=== PATIENT | female | born 1975 | race Caucasian/White ===

== ENCOUNTER 2016-09-01 16:10 | Emergency (ER) | payer OTHER ==
--- NOTE | 2016-09-01 17:23 | ED ---
Head Injury HPI - General Chief complaint: Head Injury Stated complaint: Fall, Head Injury Time Seen by Provider: 09/01/16 17:10 Source: patient, RN notes reviewed Mode of arrival: wheelchair Limitations: no limitations - History of Present Illness Initial comments: 41-year-old female presents emergency Department chief complaint of fall, head injury. Patient states that she tripped down 2 steps into a couch. Patient states she struck the left side of her head. Patient complains of left-sided head, upper neck pain. Patient denies any extremity injuries no LOC. Patient states she did feel slightly dizzy after has been complaining of severe pain. Patient has had no abnormal behavior. Denies any paresthesias of her upper or lower extremity. Denies any chest pain, shortness breath. Patient offers no other complaints other than the headache. - Related Data Home Medications Medication Instructions Recorded Confirmed [id number] 1 tab PO Q6H PRN 09/01/16 09/01/16 [Excedrin] Previous Rx's Medication Instructions Recorded Hydrocodone/Acetaminophen [[place] 1 tab PO Q6HR PRN #15 tab 09/01/16 5-325] Ondansetron Odt [Zofran Odt] 4 mg PO Q8HR PRN #10 tab 09/01/16 Allergies/Adverse reactions: Allergies Allergy/AdvReac Type Severity Reaction Status Date / Time ciprofloxacin [From Cipro] AdvReac Nausea & Verified 09/01/16 17:13 Vomiting Review of Systems ROS Statement: Those systems with pertinent positive or pertinent negative responses have been documented in the HPI. ROS Other: All systems not noted in ROS Statement are negative. Past Medical History Past Medical History: No Reported History Additional Past Medical History / Comment(s): kidney stones History of Any Multi-Drug Resistant Organisms: None Reported Past Surgical History: Tonsillectomy, Tubal Ligation Past Psychological History: No Psychological Hx Reported Smoking Status: Never smoker Past Alcohol Use History: None Reported Past Drug Use History: None Reported General Exam Limitations: no limitations General appearance: alert, in no apparent distress Head exam: Present: atraumatic, normocephalic, normal inspection, other (Mild tenderness to the left parietal, occipital region) Eye exam: Present: normal appearance, PERRL, EOMI. Absent: scleral icterus, conjunctival injection, periorbital swelling ENT exam: Present: normal exam, normal oropharynx, mucous membranes moist, TM's normal bilaterally, normal external ear exam Neck exam: Present: normal inspection, full ROM. Absent: tenderness, meningismus, lymphadenopathy Respiratory exam: Present: normal lung sounds bilaterally. Absent: respiratory distress, wheezes, rales, rhonchi, stridor Cardiovascular Exam: Present: regular rate, normal rhythm, normal heart sounds. Absent: systolic murmur, diastolic murmur, rubs, gallop, clicks GI/Abdominal exam: Present: soft, normal bowel sounds. Absent: distended, tenderness, guarding, rebound, rigid Extremities exam: Present: normal inspection, full ROM, normal capillary refill. Absent: tenderness, pedal edema, joint swelling, calf tenderness Neurological exam: Present: alert, oriented X3, CN II-XII intact, reflexes normal. Absent: motor sensory deficit Skin exam: Present: warm, dry, intact, normal color. Absent: rash Course Vital Signs 09/01/16 09/01/16 16:21 17:55 Temperature 97.6 F Pulse Rate 105 H 94 Respiratory 20 18 Rate Blood Pressure 147/99 144/70 O2 Sat by Pulse 99 98 Oximetry Medical Decision Making - Medical Decision Making 41-year-old female presented emergency from for head injury. There is no acute intracranial bleed no fractures. Patient has concussion, facial contusion. Patient will be discharged. Return parameters were discussed. Disposition Clinical Impression: Concussion, Facial contusion Disposition: HOME SELF-CARE Condition: Stable Instructions: Concussion (ED) Additional Instructions: Please return to the Emergency Department if symptoms worsen or any other concerns. Prescriptions: Hydrocodone/Acetaminophen [[place] 5-325] 1 tab PO Q6HR PRN #15 tab PRN Reason: Pain Ondansetron Odt [Zofran Odt] 4 mg PO Q8HR PRN #10 tab PRN Reason: Nausea Time of Disposition: 18:22
--- NOTE | 2016-09-01 17:56 | CT ---
EXAMINATION TYPE: CT brain marleneine wo con DATE OF EXAM: 09/01/2016 5:49 PM COMPARISON: NONE HISTORY: Fall today. Head and neck pain CT DLP: 1590.9 mGycm Automated exposure control for dose reduction was used. TECHNIQUE: CT scan of the head and cervical spine are performed without contrast. FINDINGS: The ventricles and sulci appear normal. There is no mass effect nor midline shift. There is no sign of intracranial hemorrhage. The calvarium is intact. The cervical vertebra are fairly normal spacing and alignment. Posterior elements are intact. Facet j oints appear intact. Skull base is intact. Prevertebral soft tissues appear normal. IMPRESSION: Negative CT scan of the brain. Negative CT scan of the cervical spine.
[2016-09-01] MEDS ORDERED: ONDANSETRON ODT 4 MG TAB PO STA (18:21)
[2016-09-01] MEDS ORDERED: HYDROcodone/APAP 5-325MG 1 EACH TAB PO STA (18:21)
[2016-09-01 18:42] VITALS: BP 141/56; PULSE 88; RESP 20; TEMP 97.3
== END 2016-09-01 18:40 | disposition home or self-care (01) ==
LOC: EC 16:10
DX: S06.0X0A Concussion without loss of consciousness, initial encounter (principal); S00.83XA Contusion of other part of head, initial encounter; Z88.1 Allergy status to other antibiotic agents; W10.9XXA Fall (on) (from) unspecified stairs and steps, initial encounter
CPT/HCPCS: 70450; 72125; 99284

== ENCOUNTER 2016-09-03 09:33 | Emergency (ER) | payer OTHER ==
[2016-09-03 09:38] VITALS: TEMP 97.8
[2016-09-03] MEDS ORDERED: ONDANSETRON ODT 4 MG TAB PO STA (10:00)
--- NOTE | 2016-09-03 10:21 | CT ---
EXAMINATION TYPE: CT brain wo con DATE OF EXAM: 09/03/2016 10:12 AM COMPARISON: 09/01/2016 HISTORY: 41-year-old female worsened headache from fall on 09/01/16 TECHNIQUE: Examination was done in axial plane without intravenous contrast. Coronal and sagittal reconstructio ns performed. CT DLP: 1108.4 mGycm Automated exposure control for dose reduction was used. FINDINGS: There is no evidence of acute intracranial hemorrhage, acute ischemic changes, mass, mass-effect, or extra-axial fluid collection. There is no effacement of cerebral sulci or basal subarachnoid cister ns. There is no hydrocephalus. There is no midline shift. Josue-white matter distinction is preserv ed. 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 Empty sella also redemonstrated. Paranasal sinuses and mastoid air cells are well pneumatized. Orbits and globes are intact. IMPRESSION: No acute intracranial abnormality seen. A couple incidental findings including benign cerebellar tons illar ectopia and an empty sella are unchanged.
--- NOTE | 2016-09-03 10:36 | ED ---
Head Injury HPI - General Chief complaint: Head Injury Stated complaint: Fall Time Seen by Provider: 09/03/16 09:39 Source: patient, RN notes reviewed Mode of arrival: ambulatory Limitations: no limitations - History of Present Illness Initial comments: 41-year-old female presents emergency Department with chief complaint headache. Patient was seen here in emergency department 2 days ago for fall head injury. Patient's CT showed no acute abnormality. Patient states that she has continuation of her headache, nausea and vomiting. Patient states that she did fill pain medication though she cannot afford the into the medics. Patient states that she did scheduled appointment with Dr. Manzano a new primary care physician for Tuesday follow-up. Patient states she does have some dizziness. Patient has had no blurred vision no focal weakness. Patient is able to ambulate without difficulty. Patient states that she thought she has some fluid come out of her left ear which she states she put her finger there and there was nothing much. Patient denies any drainage at this time. She states this happened yesterday. She did admit to taking a shower earlier that day. Patient denies any chest pain or shortness breath. Patient states that she has pain on the left side of her head around her left ear Place: home - Related Data Home Medications Medication Instructions Recorded Confirmed [id number] 1 tab PO Q6H PRN 09/01/16 09/01/16 [Excedrin] Previous Rx's Medication Instructions Recorded Hydrocodone/Acetaminophen [[place] 1 tab PO Q6HR PRN #15 tab 09/01/16 5-325] Ondansetron Odt [Zofran Odt] 4 mg PO Q8HR PRN #10 tab 09/01/16 Metoclopramide [Reglan] 10 mg PO TID PRN #15 tab 09/03/16 Allergies/Adverse reactions: Allergies Allergy/AdvReac Type Severity Reaction Status Date / Time ciprofloxacin [From Cipro] AdvReac Nausea & Verified 09/03/16 09:38 Vomiting Review of Systems ROS Statement: Those systems with pertinent positive or pertinent negative responses have been documented in the HPI. ROS Other: All systems not noted in ROS Statement are negative. Past Medical History Past Medical History: No Reported History Additional Past Medical History / Comment(s): kidney stones History of Any Multi-Drug Resistant Organisms: None Reported Past Surgical History: Tonsillectomy, Tubal Ligation Past Psychological History: No Psychological Hx Reported Smoking Status: Never smoker Past Alcohol Use History: None Reported Past Drug Use History: None Reported General Exam Limitations: no limitations General appearance: alert, in no apparent distress Head exam: Present: atraumatic, normocephalic, normal inspection Eye exam: Present: normal appearance, PERRL, EOMI. Absent: scleral icterus, conjunctival injection, periorbital swelling ENT exam: Present: normal exam, normal oropharynx, mucous membranes moist, TM's normal bilaterally (There is no rupture of the TM there is no fluid noted in the canal), normal external ear exam, other ( no mastoid tenderness, no lee sign ) Neck exam: Present: normal inspection, full ROM. Absent: tenderness, meningismus, lymphadenopathy Respiratory exam: Present: normal lung sounds bilaterally. Absent: respiratory distress, wheezes, rales, rhonchi, stridor Cardiovascular Exam: Present: regular rate, normal rhythm, normal heart sounds. Absent: systolic murmur, diastolic murmur, rubs, gallop, clicks Back exam: Present: full ROM. Absent: tenderness Neurological exam: Present: alert, oriented X3, CN II-XII intact, reflexes normal. Absent: motor sensory deficit Skin exam: Present: warm, dry, intact, normal color. Absent: rash Course Vital Signs 09/03/16 09:35 Temperature 97.8 F Pulse Rate 86 Respiratory 20 Rate Blood Pressure 143/74 O2 Sat by Pulse 100 Oximetry Medical Decision Making - Medical Decision Making 41-year-old female presented emergency department for worsening headache. Patient CT was repeated which showed no acute intracranial bleed or any acute abnormality. There was some incidental findings. Patient has postconcussion symptoms. Patient will be given a different antiemetic at this time. Patient will be given number to Dr. Rojo neurology. Return parameters discussed. Patient does have a follow-up appointment currently with primary care physician on Tuesday. Disposition Clinical Impression: Postconcussional syndrome Disposition: TRANSFER TO PSYCH HOSP/UNIT Condition: Stable Instructions: Post Concussion Syndrome (ED) Additional Instructions: Please follow-up with your primary care physician and neurology as discussed.Please return to the Emergency Department if symptoms worsen or any other concerns. Prescriptions: Metoclopramide [Reglan] 10 mg PO TID PRN #15 tab PRN Reason: GERD Referrals: Srikanth Rob MD [REFERRING] - 1-2 days Tracey Rojo MD [STAFF PHYSICIAN] - 1-2 days Time of Disposition: 10:36
[2016-09-03 10:52] VITALS: BP 135/75; PULSE 78; RESP 16
== END 2016-09-03 10:52 ==
LOC: EC 09:33
DX: F07.81 Postconcussional syndrome (principal); W19.XXXA Unspecified fall, initial encounter; Z88.1 Allergy status to other antibiotic agents
CPT/HCPCS: 70450; 99283

== ENCOUNTER 2019-11-27 22:15 | Emergency (ER) | payer OTHER ==
[2019-11-27 22:24] VITALS: RESP 18; TEMP 97.8
[2019-11-27 23:12] LABS: Appearance,Urine Clear (Clear); Bilirubin,Urine Negative (Negative); Blood,Urine Trace (Negative); Color,Urine Yellow; Glucose,Urine (UA) Negative (Negative); Ketones,Urine Negative (Negative); Leukocyte Esterase,Urine Negative (Negative); Mucus,Urine Rare /hpf; Nitrite,Urine Negative (Negative); PH, Urine 5.5 (5.0-8.0); Protein,Urine Negative (Negative); RBC,Urine <1 /hpf (0-5); Specific Gravity,Urine 1.018 (1.001-1.035); Squamous Epithelial Cell,Urine 1 /hpf (0-4); Urobilinogen,Urine <2.0 mg/dL (<2.0); WBC,Urine <1 /hpf (0-5)
[2019-11-27 23:14] LABS: Basophils % (A) 0 %; Eosinophils # (A) 0.2 k/uL (0-0.7); Eosinophils % (A) 1 %; HCT 35.6 % (34.0-46.0); HGB 11.4 gm/dL (11.4-16.0); Hypochromasia Slight; Lymphocytes # (A) 1.9 k/uL (1.0-4.8); Lymphocytes % (A) 16 %; MCH 27.1 pg (25.0-35.0); MCHC 32.2 g/dL (31.0-37.0); MCV 84.4 fL (80.0-100.0); Monocytes # (A) 0.5 k/uL (0-1.0); Monocytes % (A) 5 %; Neutrophils % (A) 77 %; Platelet Count 227 k/uL (150-450); RBC 4.22 m/uL (3.80-5.40); RDW 13.7 % (11.5-15.5); WBC 11.8 k/uL (3.8-10.6)
[2019-11-27 23:22] LABS: ALT 17 U/L (4-34); AST 25 U/L (14-36); African American GFR (CKD) >90 (>60 ml/min/1.73 sqM); Albumin 4.5 g/dL (3.5-5.0); Alkaline Phosphatase 70 U/L (38-126); Anion Gap 6 mmol/L; Blood Urea Nitrogen 12 mg/dL (7-17); Calcium 9.8 mg/dL (8.4-10.2); Carbon Dioxide 28 mmol/L (22-30); Chloride 102 mmol/L (98-107); Glucose 113 mg/dL (74-99); Non-African American GFR(CKD) >90 (>60 ml/min/1.73 sqM); Potassium 4.5 mmol/L (3.5-5.1); Sodium 136 mmol/L (137-145); Total Bilirubin 0.4 mg/dL (0.2-1.3); Total Protein 7.1 g/dL (6.3-8.2)
--- NOTE | 2019-11-27 23:52 | ED ---
Female Urogenital HPI - General Source: patient Mode of arrival: ambulatory Limitations: no limitations <Edita Eden - Last Filed: 11/28/19 00:05> <Srikanth Ray - Last Filed: 11/28/19 01:07> - General Chief complaint: Urogenital Stated complaint: Pelvic Pain Time Seen by Provider: 11/27/19 22:31 - History of Present Illness Initial comments: 44-year-old presenting today for chief complaint of lower pelvic pain 2 days. Patient states she has diffuse lower pelvic pain for the past 3 days. Patient s tates that it came on gradually and was tolerable at first she states at times as burning other times sharp. Patient denies dysuria urgency frequency denies any flank pain fevers diarrhea or vomiting. Patient denies any upper abdominal pain chest pain or shortness of breath. Patient denies any melena hematochezia or vaginal bleeding she denies any vaginal discharge or odors. Patient states that she has had a previous right salpingectomy secondary to PID 8 years ago. Patient states that she has also had a previous appendectomy. Patient denies additional complaints, upon arrival patient appear uncomfortable, but no distress. VS within acceptable limits. (Edita Eden) - Related Data Home Medications Medication Instructions Recorded Confirmed [id number] 1 tab PO Q6H PRN 09/01/16 09/01/16 [Excedrin] Previous Rx's Medication Instructions Recorded Hydrocodone/Acetaminophen [[place] 1 tab PO Q6HR PRN #15 tab 09/01/16 5-325] Ondansetron Odt [Zofran Odt] 4 mg PO Q8HR PRN #10 tab 09/01/16 Metoclopramide [Reglan] 10 mg PO TID PRN #15 tab 09/03/16 Allergies Allergy/AdvReac Type Severity Reaction Status Date / Time ciprofloxacin [From Cipro] AdvReac Nausea & Verified 11/27/19 22:24 Vomiting Review of Systems ROS Other: All systems not noted in ROS Statement are negative. <Edita Eden - Last Filed: 11/28/19 00:05> ROS Other: All systems not noted in ROS Statement are negative. <Srikanth aRy - Last Filed: 11/28/19 01:07> ROS Statement: Those systems with pertinent positive or pertinent negative responses have been documented in the HPI. Past Medical History Past Medical History: No Reported History Additional Past Medical History / Comment(s): kidney stones History of Any Multi-Drug Resistant Organisms: None Reported Past Surgical History: Appendectomy, Tonsillectomy, Tubal Ligation Past Psychological History: No Psychological Hx Reported Smoking Status: Never smoker Past Alcohol Use History: None Reported Past Drug Use History: None Reported <Edita Eden - Last Filed: 11/28/19 00:05> General Exam Limitations: no limitations <Edita Eden - Last Filed: 11/28/19 00:05> - General Exam Comments Initial Comments: General: The patient is awake and alert, appears uncomfortable. Eye: +3 mm pupils are equal, round and reactive to light, extra-ocular movements are intact. No nystagmus. There is normal conjunctiva bilaterally. No signs of icterus. Ears, nose, mouth and throat: There are moist mucous membranes and no oral lesions. Neck: The neck is supple, there is no tenderness or JVD. Cardiovascular: There is a regular rate and rhythm. No murmur, rub or gallop is appreciated. Respiratory: Lungs are clear to auscultation, respirations are non-labored, breath sounds are equal. No wheezes, stridor, rales, or rhonchi. Gastrointestinal: Soft, non-distended, diffuse tenderness to the lower abdomen, appears pelvic but difficult to distinguish secondary to panus. Remaining upper abdomen without tenderness, without masses or organomegaly noted. There is no rebound or guarding present. Musculoskeletal: Normal ROM, no tenderness. Strength 5/5. Sensation intact. Radial pulses equal bilaterally 2+. Neurological: A&O x 3. CN II-XII intact grossly, There are no obvious motor or sensory deficits. Coordination appears grossly intact. Speech is normal. Skin: Skin is warm and dry and no rashes or lesions are noted. Psychiatric: Cooperative, appropriate mood & affect, normal judgment. (Edita Eden) Course Vital Signs 11/27/19 22:22 Temperature 97.8 F Pulse Rate 76 Respiratory 18 Rate Blood Pressure 147/87 O2 Sat by Pulse 100 Oximetry Medical Decision Making - Lab Data Result diagrams: 11/27/19 22:49 11/27/19 22:49 <Edita Eden - Last Filed: 11/28/19 00:05> - Lab Data Result diagrams: 11/27/19 22:49 11/27/19 22:49 <Srikanth Ray - Last Filed: 11/28/19 01:07> - Medical Decision Making 44-year-old female with lower abdominal pain. Patient workup reveals mild leukocytosis, no other significant abnormality. Ultrasound was performed which shows multiple cervical cysts, right ovary is not well visualized on of the patient's pain is predominantly on the left side. I did discuss computed tomography scan with the patient, she prefers to wait on this study and wants to go home and rest. She states she will return with any worsening or changing symptoms. I did reexamine her abdomen, there is minimal left-sided tenderness, no rebound or guarding. Again patient prefers discharge at this time with no further evaluation or treatment. (Srikanth Ray) - Lab Data Lab Results 11/27/19 11/27/19 11/27/19 Range/Units 22:49 22:49 22:53 WBC 11.8 H (3.8-10.6) k/uL RBC 4.22 (3.80-5.40) m/uL Hgb 11.4 (11.4-16.0) gm/dL Hct 35.6 (34.0-46.0) % MCV 84.4 (80.0-100.0) fL MCH 27.1 (25.0-35.0) pg MCHC 32.2 (31.0-37.0) g/dL RDW 13.7 (11.5-15.5) % Plt Count 227 (150-450) k/uL Neutrophils % 77 % Lymphocytes % 16 % Monocytes % 5 % Eosinophils % 1 % Basophils % 0 % Neutrophils # 9.0 H (1.3-7.7) k/uL Lymphocytes # 1.9 (1.0-4.8) k/uL Monocytes # 0.5 (0-1.0) k/uL Eosinophils # 0.2 (0-0.7) k/uL Basophils # 0.0 (0-0.2) k/uL Hypochromasia Slight Sodium 136 L (137-145) mmol/L Potassium 4.5 (3.5-5.1) mmol/L Chloride 102 (98-107) mmol/L Carbon Dioxide 28 (22-30) mmol/L Anion Gap 6 mmol/L BUN 12 (7-17) mg/dL Creatinine 0.73 (0.52-1.04) mg/dL Est GFR (CKD-EPI)AfAm >90 (>60 ml/min/1.73 sqM) Est GFR (CKD-EPI)NonAf >90 (>60 ml/min/1.73 sqM) Glucose 113 H (74-99) mg/dL Calcium 9.8 (8.4-10.2) mg/dL Total Bilirubin 0.4 (0.2-1.3) mg/dL AST 25 (14-36) U/L ALT 17 (4-34) U/L Alkaline Phosphatase 70 (38-126) U/L Total Protein 7.1 (6.3-8.2) g/dL Albumin 4.5 (3.5-5.0) g/dL Urine Color Yellow Urine Appearance Clear (Clear) Urine pH 5.5 (5.0-8.0) Ur Specific [place] 1.018 (1.001-1.035) Urine Protein Negative (Negative) Urine Glucose (UA) Negative (Negative) Urine Ketones Negative (Negative) Urine Blood Trace H (Negative) Urine Nitrite Negative (Negative) Urine Bilirubin Negative (Negative) Urine Urobilinogen <2.0 (<2.0) mg/dL Ur Leukocyte Esterase Negative (Negative) Urine RBC <1 (0-5) /hpf Urine WBC <1 (0-5) /hpf Ur Squamous Epith Cells 1 (0-4) /hpf Urine Mucus Rare H (None) /hpf Disposition <Edita Eden - Last Filed: 11/28/19 00:05> Is patient prescribed a controlled substance at d/c from ED?: No Time of Disposition: 01:06 <Srikanth Ray - Last Filed: 11/28/19 01:07> Clinical Impression: Abdominal pain Disposition: HOME SELF-CARE Instructions (If sedation given, give patient instructions): Abdominal Pain (ED) Referrals: None,Stated [Primary Care Provider] - 1-2 days Suman Maldonado MD [STAFF PHYSICIAN] - 1-2 days
--- NOTE | 2019-11-28 00:24 | US ---
EXAMINATION TYPE: US transvaginal DATE OF EXAM: 11/27/2019 COMPARISON: NONE CLINICAL HISTORY: pelvic pain. Pelvic pain x 3 days. Hx right fallopian tube removed. Hx tubal ligati on, Appendectomy. TECHNIQUE: Transvaginal (TV). Date of LMP: 11/07/2019. EXAM MEASUREMENTS: Uterus: 11.4 x 8.0 x 7.0 cm Endometrial Stripe: 0.7 cm Right Ovary: Not seen Left Ovary: 4.0 x 2.8 x 3.3 cm 1. Uterus: Anteverted. Measures enlarged. Appears heterogeneous. Limited due to shadowing. There rony ears to be a hypoechoic area posteriorly measurin.7 x 2.5 x 2.2 cm. Multiple anechoic areas seen in cervix. 2. Endometrium: Not well seen. Measured at: 0.7 cm. 3. Right Ovary: Not seen. 4. Left Ovary: Limited visibility due to depth and shadowing. Venous waveform seen. Possible arteria l waveform seen. Limited. Appears to be slightly enlarged. 5. Bilateral Adnexa: Appear to be wnl 6. Posterior cul-de-sac: Appears to be wnl IMPRESSION: There are cervical cysts. No adnexal mass or free fluid. Normal endometrium.
[2019-11-28 01:24] VITALS: BP 127/78; PULSE 63
== END 2019-11-28 01:21 | disposition home or self-care (01) ==
LOC: EC 22:15
DX: R10.30 Lower abdominal pain, unspecified (principal); N88.8 Other specified noninflammatory disorders of cervix uteri; D72.829 Elevated white blood cell count, unspecified; Z88.1 Allergy status to other antibiotic agents; Z90.89 Acquired absence of other organs; Z98.51 Tubal ligation status; Z90.721 Acquired absence of ovaries, unilateral; Z87.442 Personal history of urinary calculi
CPT/HCPCS: 36415; 76830; 80053; 81001; 85025; 93976; 99284

== ENCOUNTER 2020-04-15 00:09 | Observation (INO) | payer OTHER, BC ==
[2020-04-15] MEDS ORDERED: SODIUM CHLORIDE 0.9% 1,000 ML IV STA (00:29)
--- NOTE | 2020-04-15 00:55 | ED ---
General Adult HPI - General Chief complaint: Syncope Stated complaint: CHEST PAIN Time Seen by Provider: 04/15/20 00:16 Source: patient, family Mode of arrival: ambulatory Limitations: no limitations - History of Present Illness Initial comments: 44-year-old female patient presents to the emergency department today for evaluation after experiencing a syncopal episode. Patient states that the proximal he 2 hours ago she was standing in the bathroom when she suddenly felt her heart start to pound and then she passed out. Patient states she was able t o call her who then came home and brought her to this emergency department. States she did have a similar episode yesterday when standing in the kitchen she became very nauseated, leaned forward to vomit and then passed out for about 15 seconds. was present the first episode and denies any body shaking or convulsions. Patient states that she has been having palpitations for the last several months. She has not had evaluated by her physician as they generally go away after a few seconds. Patient is also experiencing heavy and prolonged menstrual bleeding. States her last period lasted for about 4 weeks and ended approximately one week ago. She states this has been going on for the last several months. She has been anemic related to this. She denies any chest pain. Denies any current nausea. States that she does become winded with activity. Denies any extremity swelling. She is also reporting some chest discomfort beneath the left breast. She does have history of high blood pressure and does take atenolol 50 mg, she has been at this dose for quite some time. Patient denies any recent rash, fever, chills, cough, abdominal pain, diarrhea, constipation, back pain, numbness, tingling, hematuria, dysuria, urinary urgency, urinary frequency, headache, visual changes, or any other complaints. - Related Data Home Medications Medication Instructions Recorded Confirmed [id number] 1 tab PO Q6H PRN 09/01/16 09/01/16 [Excedrin] Previous Rx's Medication Instructions Recorded Hydrocodone/Acetaminophen [[place] 1 tab PO Q6HR PRN #15 tab 09/01/16 5-325] Ondansetron Odt [Zofran Odt] 4 mg PO Q8HR PRN #10 tab 09/01/16 Metoclopramide [Reglan] 10 mg PO TID PRN #15 tab 09/03/16 Allergies Allergy/AdvReac Type Severity Reaction Status Date / Time cefuroxime [From Ceftin] AdvReac Nausea & Verified 04/15/20 00:15 Vomiting ciprofloxacin [From Cipro] AdvReac Nausea & Verified 04/15/20 00:16 Vomiting morphine AdvReac Rash/Hives Verified 04/15/20 00:15 Review of Systems ROS Statement: Those systems with pertinent positive or pertinent negative responses have been documented in the HPI. ROS Other: All systems not noted in ROS Statement are negative. Past Medical History Past Medical History: Hypertension Additional Past Medical History / Comment(s): kidney stones History of Any Multi-Drug Resistant Organisms: None Reported Past Surgical History: Appendectomy, Tonsillectomy, Tubal Ligation Past Psychological History: No Psychological Hx Reported Smoking Status: Never smoker Past Alcohol Use History: None Reported Past Drug Use History: None Reported General Exam Limitations: no limitations General appearance: alert, in no apparent distress, other (This is a well- developed, well-nourished adult female patient in no acute distress. Vital signs upon presentation are temperature 99.1F, pulse 73, respirations 20, blood pressure 155/83, pulse ox 98% on room air.) Eye exam: Present: normal appearance, PERRL, EOMI. Absent: scleral icterus, conjunctival injection, periorbital swelling ENT exam: Present: normal exam, normal oropharynx, mucous membranes moist Respiratory exam: Present: normal lung sounds bilaterally. Absent: respiratory distress, wheezes, rales, rhonchi, stridor Cardiovascular Exam: Present: regular rate, normal rhythm, normal heart sounds. Absent: systolic murmur, diastolic murmur, rubs, gallop, clicks GI/Abdominal exam: Present: soft, normal bowel sounds. Absent: distended, tenderness, guarding, rebound, rigid Neurological exam: Present: alert, oriented X3, CN II-XII intact Psychiatric exam: Present: normal affect, normal mood Skin exam: Present: warm, dry, intact, normal color. Absent: rash Course Vital Signs 04/15/20 00:11 Temperature 99.1 F Pulse Rate 73 Respiratory 20 Rate Blood Pressure 155/83 O2 Sat by Pulse 98 Oximetry EKG Findings - EKG Comments: EKG Findings:: EKG obtained at 0021 shows normal sinus rhythm with a ventricular rate of 73, TX interval 148, QRS duration 78, QT 370, QTC 407. No evidence of ST elevation or depression. Medical Decision Making - Medical Decision Making 44-year-old female patient presents to the emergency department today for evaluation of palpitations and syncope. She is also reporting shortness of breath with activity and left-sided chest discomfort. Physical examination is unremarkable. Patient is normal sinus rhythm on heart monitor. EKG showed normal sinus rhythm area did labs reviewed and are unremarkable. Given that the syncopal events happened ice over the last couple of days I believe it would be beneficial for her to remain in the hospital for observation with cardiac monitoring and evaluation by cardiology tomorrow. We will repeat troponins and get echo in the morning. I did discuss findings, results, plan with the patient, she is agreeable. Dr. Cueva is accepting. - Lab Data Result diagrams: 04/15/20 01:08 04/15/20 01:08 Lab Results 04/15/20 04/15/20 04/15/20 Range/Units 01:08 01:08 01:08 WBC 8.2 (3.8-10.6) k/uL RBC 3.83 (3.80-5.40) m/uL Hgb 10.3 L (11.4-16.0) gm/dL Hct 31.8 L (34.0-46.0) % MCV 82.8 (80.0-100.0) fL MCH 26.9 (25.0-35.0) pg MCHC 32.5 (31.0-37.0) g/dL RDW 15.6 H (11.5-15.5) % Plt Count 229 (150-450) k/uL Neutrophils % 70 % Lymphocytes % 19 % Monocytes % 7 % Eosinophils % 2 % Basophils % 0 % Neutrophils # 5.8 (1.3-7.7) k/uL Lymphocytes # 1.6 (1.0-4.8) k/uL Monocytes # 0.6 (0-1.0) k/uL Eosinophils # 0.2 (0-0.7) k/uL Basophils # 0.0 (0-0.2) k/uL Hypochromasia Slight PT 9.8 (9.0-12.0) sec INR 0.9 (<1.2) APTT 22.7 (22.0-30.0) sec Sodium (137-145) mmol/L Potassium (3.5-5.1) mmol/L Chloride (98-107) mmol/L Carbon Dioxide (22-30) mmol/L Anion Gap mmol/L BUN (7-17) mg/dL Creatinine (0.52-1.04) mg/dL Est GFR (CKD-EPI)AfAm (>60 ml/min/1.73 sqM) Est GFR (CKD-EPI)NonAf (>60 ml/min/1.73 sqM) Glucose (74-99) mg/dL Calcium (8.4-10.2) mg/dL Magnesium (1.6-2.3) mg/dL Total Bilirubin (0.2-1.3) mg/dL AST (14-36) U/L ALT (4-34) U/L Alkaline Phosphatase (38-126) U/L Troponin I (0.000-0.034) ng/mL Total Protein (6.3-8.2) g/dL Albumin (3.5-5.0) g/dL TSH (0.465-4.680) mIU/L Urine Color Yellow Urine Appearance Cloudy H (Clear) Urine pH 5.5 (5.0-8.0) Ur Specific [place] 1.023 (1.001-1.035) Urine Protein Negative (Negative) Urine Glucose (UA) Negative (Negative) Urine Ketones Negative (Negative) Urine Blood Moderate H (Negative) Urine Nitrite Negative (Negative) Urine Bilirubin Negative (Negative) Urine Urobilinogen <2.0 (<2.0) mg/dL Ur Leukocyte Esterase Negative (Negative) Urine RBC <1 (0-5) /hpf Urine WBC 1 (0-5) /hpf Ur Squamous Epith Cells 12 H (0-4) /hpf Urine Bacteria Rare H (None) /hpf Urine Mucus Occasional H (None) /hpf 04/15/20 04/15/20 Range/Units 01:08 01:08 WBC (3.8-10.6) k/uL RBC (3.80-5.40) m/uL Hgb (11.4-16.0) gm/dL Hct (34.0-46.0) % MCV (80.0-100.0) fL MCH (25.0-35.0) pg MCHC (31.0-37.0) g/dL RDW (11.5-15.5) % Plt Count (150-450) k/uL Neutrophils % % Lymphocytes % % Monocytes % % Eosinophils % % Basophils % % Neutrophils # (1.3-7.7) k/uL Lymphocytes # (1.0-4.8) k/uL Monocytes # (0-1.0) k/uL Eosinophils # (0-0.7) k/uL Basophils # (0-0.2) k/uL Hypochromasia PT (9.0-12.0) sec INR (<1.2) APTT (22.0-30.0) sec Sodium 134 L (137-145) mmol/L Potassium 4.2 (3.5-5.1) mmol/L Chloride 105 (98-107) mmol/L Carbon Dioxide 24 (22-30) mmol/L Anion Gap 5 mmol/L BUN 14 (7-17) mg/dL Creatinine 0.71 (0.52-1.04) mg/dL Est GFR (CKD-EPI)AfAm >90 (>60 ml/min/1.73 sqM) Est GFR (CKD-EPI)NonAf >90 (>60 ml/min/1.73 sqM) Glucose 87 (74-99) mg/dL Calcium 9.5 (8.4-10.2) mg/dL Magnesium 2.0 (1.6-2.3) mg/dL Total Bilirubin 0.3 (0.2-1.3) mg/dL AST 25 (14-36) U/L ALT 19 (4-34) U/L Alkaline Phosphatase 78 (38-126) U/L Troponin I <0.012 (0.000-0.034) ng/mL Total Protein 6.6 (6.3-8.2) g/dL Albumin 4.2 (3.5-5.0) g/dL TSH 2.310 (0.465-4.680) mIU/L Urine Color Urine Appearance (Clear) Urine pH (5.0-8.0) Ur Specific [place] (1.001-1.035) Urine Protein (Negative) Urine Glucose (UA) (Negative) Urine Ketones (Negative) Urine Blood (Negative) Urine Nitrite (Negative) Urine Bilirubin (Negative) Urine Urobilinogen (<2.0) mg/dL Ur Leukocyte Esterase (Negative) Urine RBC (0-5) /hpf Urine WBC (0-5) /hpf Ur Squamous Epith Cells (0-4) /hpf Urine Bacteria (None) /hpf Urine Mucus (None) /hpf - Radiology Data Radiology results: report reviewed, image reviewed 2 view x-ray of the chest is obtained. Report was reviewed in its entirety. Impression by Dr. Flores shows normal chest. Disposition Clinical Impression: Palpitations, Syncope Disposition: ADMITTED IP TO THIS [facility] Condition: Serious Referrals: Rell Noguera MD [Primary Care Provider] - 1-2 days Decision to Admit Reason: Admit from EC Decision Date: 04/15/20 Decision Time: 02:28
--- NOTE | 2020-04-15 00:59 | XR ---
EXAMINATION TYPE: XR chest 2V DATE OF EXAM: 04/15/2020 COMPARISON: NONE HISTORY: Syncope TECHNIQUE: 2 views FINDINGS: Heart and mediastinum are normal. Lungs are clear. Diaphragm is normal. Bony thorax appears normal. IMPRESSION: Normal chest.
[2020-04-15 01:24] LABS: Appearance,Urine Cloudy (Clear); Bacteria,Urine Rare /hpf; Basophils % (A) 0 %; Bilirubin,Urine Negative (Negative); Blood,Urine Moderate (Negative); Color,Urine Yellow; Eosinophils # (A) 0.2 k/uL (0-0.7); Eosinophils % (A) 2 %; Glucose,Urine (UA) Negative (Negative); HCT 31.8 % (34.0-46.0); HGB 10.3 gm/dL (11.4-16.0); Hypochromasia Slight; Ketones,Urine Negative (Negative); Leukocyte Esterase,Urine Negative (Negative); Lymphocytes # (A) 1.6 k/uL (1.0-4.8); Lymphocytes % (A) 19 %; MCH 26.9 pg (25.0-35.0); MCHC 32.5 g/dL (31.0-37.0); MCV 82.8 fL (80.0-100.0); Monocytes # (A) 0.6 k/uL (0-1.0); Monocytes % (A) 7 %; Mucus,Urine Occasional /hpf; Neutrophils # (A) 5.8 k/uL (1.3-7.7); Neutrophils % (A) 70 %; Nitrite,Urine Negative (Negative); PH, Urine 5.5 (5.0-8.0); Platelet Count 229 k/uL (150-450); Protein,Urine Negative (Negative); RBC 3.83 m/uL (3.80-5.40); RBC,Urine <1 /hpf (0-5); RDW 15.6 % (11.5-15.5); Specific Gravity,Urine 1.023 (1.001-1.035); Squamous Epithelial Cell,Urine 12 /hpf (0-4); Urobilinogen,Urine <2.0 mg/dL (<2.0); WBC 8.2 k/uL (3.8-10.6); WBC,Urine 1 /hpf (0-5)
[2020-04-15 01:36] LABS: INR 0.9 (<1.2); Partial Thromboplastin Time 22.7 sec (22.0-30.0); Prothrombin Time 9.8 sec (9.0-12.0)
[2020-04-15 01:37] LABS: ALT 19 U/L (4-34); AST 25 U/L (14-36); African American GFR (CKD) >90 (>60 ml/min/1.73 sqM); Albumin 4.2 g/dL (3.5-5.0); Alkaline Phosphatase 78 U/L (38-126); Anion Gap 5 mmol/L; Blood Urea Nitrogen 14 mg/dL (7-17); Calcium 9.5 mg/dL (8.4-10.2); Carbon Dioxide 24 mmol/L (22-30); Chloride 105 mmol/L (98-107); Glucose 87 mg/dL (74-99); Non-African American GFR(CKD) >90 (>60 ml/min/1.73 sqM); Potassium 4.2 mmol/L (3.5-5.1); Sodium 134 mmol/L (137-145); Total Bilirubin 0.3 mg/dL (0.2-1.3); Total Protein 6.6 g/dL (6.3-8.2)
[2020-04-15] MEDS ORDERED: NALOXONE 0.4 MG/ML 1 ML VIAL IV PRN (02:24)
[2020-04-15] MEDS ORDERED: ONDANSETRON 4 MG/2 ML VIAL IVP PRN (02:24)
[2020-04-15] MEDS ORDERED: HYDROcodone/APAP 5-325MG 1 EACH TAB PO PRN (03:15)
[2020-04-15] MEDS: SODIUM CHLORIDE 0.9% 1,000 ML IV SCH ×3 (04:10→21:57)
--- NOTE | 2020-04-15 04:17 | P.HPIM ---
History of Present Illness H&P Date: 04/15/20 Chief Complaint: syncope 44-year-old female with chronic anemia secondary to heavy irregular menstrual periods, hypertension on atenolol Patient comes in after having an episode of syncope. She reports that she was going to the bathroom with felt her heart is racing and next thing she knows is waking up laying on the floor she felt slightly dizzy and scared called her hu tipand who suggested that she should come to the hospital for evaluation she denies any associated trouble breathing nausea or vomiting she denies any loss of bladder or bowel control. She reports another episode a day before while making breakfast when she experienced something similar, she ended up having some palpitations followed by passing out this time witnessed by her who told her later that her face turned very pale but there were no abnormal jerky movements in her body. Otherwise this has never happened before however for many months now she has been feeling very short episodes of heart racing that are very brief not associated with any other symptoms Patient denies any changes in her medications patient denies any recent traveling denies any cardiac history. She denies any sick contacts or any symptoms of upper respiratory infections Patient does report heavy menstrual periods with history of chronic anemia she is currently on by mouth iron supplementation In the ED EKG was done showed normal sinus rhythm with Q wave in lead 1 Blood work was unremarkable except for anemia Review of Systems Pertinent positives as noted in HPI. All other systems were reviewed and are negative Past Medical History Past Medical History: Hypertension Additional Past Medical History / Comment(s): kidney stones History of Any Multi-Drug Resistant Organisms: None Reported Past Surgical History: Appendectomy, Tonsillectomy, Tubal Ligation Past Psychological History: No Psychological Hx Reported Smoking Status: Never smoker Past Alcohol Use History: None Reported Past Drug Use History: None Reported Medications and Allergies Home Medications Medication Instructions Recorded Confirmed Type [id number] 1 tab PO Q6H PRN 09/01/16 09/01/16 History [Excedrin] Hydrocodone/Acetaminophen [[place] 1 tab PO Q6HR PRN #15 tab 09/01/16 Rx 5-325] Ondansetron Odt [Zofran Odt] 4 mg PO Q8HR PRN #10 tab 09/01/16 Rx Metoclopramide [Reglan] 10 mg PO TID PRN #15 tab 09/03/16 Rx Allergies Allergy/AdvReac Type Severity Reaction Status Date / Time cefuroxime [From Ceftin] AdvReac Nausea & Verified 04/15/20 00:15 Vomiting ciprofloxacin [From Cipro] AdvReac Nausea & Verified 04/15/20 00:16 Vomiting morphine AdvReac Rash/Hives Verified 04/15/20 00:15 Physical Exam Vitals: Vital Signs Temp Pulse Resp BP Pulse Ox 04/15/20 00:11 99.1 F 73 20 155/83 98 Intake and Output 04/14/20 04/14/20 04/15/20 14:59 22:59 06:59 Other: Weight 108.862 kg Constitutional: No acute distress, conversant, pleasant Eyes: Anicteric sclerae, moist conjunctiva, Pupils equal round reactive to light ENMT: NC/AT Oropharynx clear, no erythema, or exudates Neck: Supple, FROM, no masses, or JVD No carotid bruits No thyromegaly Lungs: Clear to auscultation Clear to percussion Normal respiratory effort, no accessory muscle use Cardiovascular: Heart regular in rate and rhythm, No murmurs, gallops, or rubs No peripheral edema Abdominal: Soft Nontender, no guarding, rebound or rigidity Abdomen moving with respiration Normoactive bowel sounds No hepatomegaly, No splenomegaly No palpable mass No abdominal wall hernia noted Skin: Normal temperature, tone, texture, turgor No induration No subcutaneous nodules No rash, lesions No ulcers Extremities: No digital cyanosis No clubbing Pedal pulses intact and symmetrical Radial pulses intact and symmetrical No calf tenderness Psychiatric: Alert and oriented to person, place and time Appropriate affect fair judgement Neuro Muscles Strength 5/5 in all 4 extremities Sensation to light touch grossly present throughout Cranial nerves II-XII grossly intact No focal sensory deficits Lymphatics: no palpable cervical or supraclavicular , or inguinal lymph nodes Results CBC & Chem 7: 04/15/20 01:08 04/15/20 01:08 Labs: Abnormal Lab Results - Last 24 Hours (Table) 04/15/20 04/15/20 04/15/20 Range/Units 01:08 01:08 01:08 Hgb 10.3 L (11.4-16.0) gm/dL Hct 31.8 L (34.0-46.0) % RDW 15.6 H (11.5-15.5) % Sodium 134 L (137-145) mmol/L Urine Appearance Cloudy H (Clear) Urine Blood Moderate H (Negative) Ur Squamous Epith Cells 12 H (0-4) /hpf Urine Bacteria Rare H (None) /hpf Urine Mucus Occasional H (None) /hpf Assessment and Plan Assessment: syncope with palpitation s, rule out underlying cardiac arrhythmia monitoring specialist trend trops echo cardiogram continue atenolol cardiology consult check TSH obestiy chronic anemia irregular menstrual period OP follow up CODE STATUS:full code DVT prophylaxis: heparin sc tid Discussed with: Patient, ER, RN Anticipated length of stay < than [address]: home A total of 60 minutes was spent on the care of this complex patient more than 50% of the time was spent in counseling and care coordination.
--- NOTE | 2020-04-15 09:47 | P.CRDCN ---
History of Present Illness Consult date: 04/15/20 Consult reason: sycope Chief complaint: Syncope History of present illness: This is a pleasant 44-year-old female with documented history of hypertension, anemia for which she takes iron supplementation, presented to the hospital following an episode of syncope.according to the patient, the day prior she had her first episode, at that time she was making breakfast in the kitchen, became nauseated and pale and shortly thereafter passed out, she woke up to her trying to wake her up. The following evening the patient was standing in her bathroom, she felt a brief episode where her heart did some flip-flopping and racing and again she passed out. Patient was alert and oriented upon awakening, she did not lose bowel or bladder control, she was pale in color. Her chest x-ray on presentation here was normal, EKG showed normal sinus rhythm with nonspecific ST-T wave changes. Orthostatic blood pressure was obtained, lying patient was 124/70, sitting 143/80, and standing 137/80 with a heart rate maintained in the 60s. White blood cell count 8.2, hemoglobin 10.3, platelet count 221. Sodium 134, potassium 4.2, BUN 14, creatinine 0.7. Magnesium 2.0 troponins 3 have been negative, TSH is 2.3 we will continue to check orthostatics every shift, continue to monitor for any tachycardia or bradycardia arrhythmias, check a d-dimer, the day prior when the patient had her episode she did go to [facility], test was performed there which came back to be negative according to the patient. Past Medical History Past Medical History: Hypertension Additional Past Medical History / Comment(s): kidney stones History of Any Multi-Drug Resistant Organisms: None Reported Past Surgical History: Appendectomy, Tonsillectomy, Tubal Ligation Additional Past Surgical History / Comment(s): Right fallopian tube removed. Past Psychological History: No Psychological Hx Reported Smoking Status: Never smoker Past Alcohol Use History: None Reported Past Drug Use History: None Reported Medications and Allergies Home Medications Medication Instructions Recorded Confirmed Type Atenolol [Tenormin] 50 mg PO DAILY 04/15/20 04/15/20 History Ferrous Sulfate [Feosol] 325 mg PO DAILY 04/15/20 04/15/20 History Allergies Allergy/AdvReac Type Severity Reaction Status Date / Time cefuroxime [From Ceftin] AdvReac Nausea & Verified 04/15/20 07:51 Vomiting ciprofloxacin [From Cipro] AdvReac Nausea & Verified 04/15/20 07:51 Vomiting morphine AdvReac Rash/Hives Verified 04/15/20 07:51 Physical Exam Vitals: Vital Signs Temp Pulse Pulse Resp BP BP BP 04/15/20 08:21 60 14 04/15/20 07:58 97.8 F 60 14 04/15/20 06:52 143/86 137/87 04/15/20 03:35 98.1 F 60 18 04/15/20 03:17 61 16 143/68 04/15/20 00:11 99.1 F 73 20 155/83 BP BP Pulse Ox 04/15/20 08:21 04/15/20 07:58 143/85 98 04/15/20 06:52 124/74 04/15/20 03:35 132/82 97 04/15/20 03:17 100 04/15/20 00:11 98 Intake and Output 04/14/20 04/15/20 04/15/20 22:59 06:59 14:59 Output Total 0 Balance 0 Output: Urine 0 Other: Voiding Method Toilet Toilet # Voids 0 Weight 108.862 kg PHYSICAL EXAMINATION: GENERAL:44-year-old female in no acute distress at the time of my examination HEENT: Head is atraumatic, normocephalic. Pupils equal, round. Sclera anicteri c. Conjunctiva are clear. Mucous membranes of the mouth are moist. Neck is supple. There is no elevated jugular venous pressure.no carotid bruit is heard. HEART EXAMINATION: [Heart S1, S2 soft systolic murmur is heard.] CHEST EXAMINATION:[ Lungs are clear to auscultation and precussion. No chest wall tenderness is noted on palpation or with deep breathing.] ABDOMEN: [ Soft,obese, nontender. Bowel sounds are heard. No organomegaly noted]. EXTREMITIES:[ 2+ peripheral pulses with no evidence of peripheral edema and no calf tenderness noted]. NEUROLOGIC [patient is awake, alert and oriented 3] . Results 04/15/20 01:08 04/15/20 01:08 Cardiac Enzymes 04/15/20 04/15/20 04/15/20 Range/Units 01:08 01:08 04:32 AST 25 (14-36) U/L Troponin I <0.012 <0.012 (0.000-0.034) ng/mL 04/15/20 Range/Units 06:38 AST (14-36) U/L Troponin I <0.012 (0.000-0.034) ng/mL Coagulation 04/15/20 Range/Units 01:08 PT 9.8 (9.0-12.0) sec APTT 22.7 (22.0-30.0) sec CBC 04/15/20 Range/Units 01:08 WBC 8.2 (3.8-10.6) k/uL RBC 3.83 (3.80-5.40) m/uL Hgb 10.3 L (11.4-16.0) gm/dL Hct 31.8 L (34.0-46.0) % Plt Count 229 (150-450) k/uL Comprehensive Metabolic Panel 04/15/20 Range/Units 01:08 Sodium 134 L (137-145) mmol/L Potassium 4.2 (3.5-5.1) mmol/L Chloride 105 (98-107) mmol/L Carbon Dioxide 24 (22-30) mmol/L BUN 14 (7-17) mg/dL Creatinine 0.71 (0.52-1.04) mg/dL Glucose 87 (74-99) mg/dL Calcium 9.5 (8.4-10.2) mg/dL AST 25 (14-36) U/L ALT 19 (4-34) U/L Alkaline Phosphatase 78 (38-126) U/L Total Protein 6.6 (6.3-8.2) g/dL Albumin 4.2 (3.5-5.0) g/dL Current Medications Generic Name Dose Route Start Last Admin Trade Name Freq PRN Reason Stop Dose Admin Atenolol 50 mg 04/15/20 09:00 Atenolol 50 Mg Tab PO DAILY RAMSES Heparin Sodium (Porcine) 5,000 unit 04/15/20 08:00 Heparin Sodium,Porcine 5,000 Unit/Ml 1 Ml Vial SQ Q8HR RAMSES Sodium Chloride 1,000 mls @ 130 mls/hr 04/15/20 03:15 04/15/20 04:10 Saline 0.9% IV 130 mls/hr .[id number] RAMSES Administration Naloxone HCl 0.2 mg 04/15/20 02:24 Naloxone 0.4 Mg/Ml 1 Ml Vial IV Q2M PRN Opioid Reversal Ondansetron HCl 4 mg 04/15/20 02:24 Ondansetron 4 Mg/2 Ml Vial IVP Q8HR PRN Nausea And Vomiting Intake and Output 04/14/20 04/15/20 04/15/20 22:59 06:59 14:59 Output Total 0 Balance 0 Output: Urine 0 Other: Voiding Method Toilet Toilet # Voids 0 Weight 108.862 kg 04/15/20 01:08 04/15/20 01:08 EKG Interpretations (text) EKG shows normal sinus rhythm with nonspecific ST-T wave changes Assessment and Plan Plan: assessment and plan #1 syncope, rule out cardiac causes #2 hypertension #3 anemia, patient does take iron supplementation Plan Orthostatic so far have been negative, we will continue to check orthostatic heart rate and blood pressure every shift. Obtain a d-dimer. Continue to monitor for any tachycardia or bradycardia arrhythmias, obtain an echocardiogram with Doppler study. If her echo is normal, from our perspective she may be able to be discharged home later today, we would recommend a 30 day event monitor on discharge. Follow-up appointment in the office with Dr. Power. DNP note has been reviewed, I agree with a documented findings and plan of care. Patient was seen and examined.
--- NOTE | 2020-04-15 10:11 | ECHOF ---
Referral Reason:Palpitations; syncope MEASUREMENTS -------- HEIGHT: 162.6 cm WEIGHT: 108.9 kg BP: 124/74 RVIDd: 2.8 cm (< 3.3) IVSd: 1.3 cm (0.6 - 1.1) LVIDd: 3.9 cm (3.9 - 5.3) LVPWd: 1.5 cm (0.6 - 1.1) IVSs: 1.8 cm LVIDs: 2.5 cm LVPWs: 1.8 cm LAESV Index (A-L): 25.96 ml/m Ao Diam: 2.7 cm (2.0 - 3.7) AV Cusp: 2.1 cm (1.5 - 2.6) LA Diam: 3.1 cm (2.7 - 3.8) MV EXCURSION: 12.842 mm (> 18.000) MV EF SLOPE: 73 mm/s (70 - 150) EPSS: 0.6 cm MV E Barron: 1.06 m/s MV DecT: 199 ms MV A Barron: 0.72 m/s MV E/A Ratio: 1.47 RAP: 5.00 mmHg RVSP: 16.48 mmHg FINDINGS -------- This was a technically good study. The left ventricular size is normal. There is mild concentric left ventricular hypertrophy. Overa ll left ventricular systolic function is normal with, an EF between 55 - 60 %. Normal LAP Grade 1 D iastolic Dysfunction. The right ventricle is normal in size. The left atrial size is normal. Normal LA size by volume 22+/-6 ml/m2. The right atrial size is normal. The aortic valve is trileaflet and appears structurally normal. The mitral valve is normal. [id number] mitral regurgitation is present. The tricuspid valve appears structurally normal. Trace tricuspid regurgitation present. Right luciano tricular systolic pressure is normal at < 35 mmHg. There is no pulmonic regurgitation present. The aortic root size is normal. Normal inferior vena cava with normal inspiratory collapse consistent with estimated right atrial pre ssure of 5 mmHg. There is no pericardial effusion. CONCLUSIONS -------- 1. The left ventricular size is normal. 2. There is mild concentric left ventricular hypertrophy. 3. Overall left ventricular systolic function is normal with, an EF between 55 - 60 %. 4. Normal LAP Grade 1 Diastolic Dysfunction. 5. [id number] mitral regurgitation is present. 6. Trace tricuspid regurgitation present. 7. There is no pericardial effusion. PAINTER PLATE: Jennifer Breaux RDCS
[2020-04-15] MEDS: HEPARIN SODIUM,PORCINE 5,000 UNIT/ML 1 ML VIAL SQ SCH ×4 (11:20→23:29)
[2020-04-15] MEDS: atenoloL 50 MG TAB PO SCH ×2 (11:20→11:24)
--- NOTE | 2020-04-15 13:22 | P.DS ---
Providers Date of admission: 04/15/20 02:32 Expected date of discharge: 04/15/20 Attending physician: Dianelys Cueva MD Consults: 04/15/20 02:25 Consult Physician Routine Consulting Provider: [facility] Consult Reason/Comments: Palpitations; syncope Do you want consulting provider notified?: Yes Primary care physician: Rell Noguera [facility] Course: This is a 44-year-old female with past medical history of hypertension and chronic anemia that presented to the emergency room with a syncopal episode. Patient was evaluated in the emergency room a 12-lead EKG showed normal sinus rhythm. Orthostatic blood pressure checked and negative. Patient was placed on observation. 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 She was seen and evaluated by cardiology. Serial troponin were negative 3 sets. D-dimer was negative. Echocardiogram showed preserved ejection fraction with no significant valvular abnormalities. Patient was cleared by cardiology for discharge. She will follow-up in the office as directed to obtain an event monitor. For further details about this hospitalization please refer to the electronic chart. Patient Condition at Discharge: Stable Plan - Discharge Summary Discharge Rx Participant: No New Discharge Prescriptions: No Action Ferrous Sulfate [Feosol] 325 mg PO DAILY Atenolol [Tenormin] 50 mg PO DAILY Discharge Medication List Atenolol [Tenormin] 50 mg PO DAILY 04/15/20 [History] Ferrous Sulfate [Feosol] 325 mg PO DAILY 04/15/20 [History] Follow up Appointment(s)/Referral(s): Isidro Charles MD [STAFF PHYSICIAN] - 05/29/20 4:30 pm (event monitor & hospital follow up. 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 please bring in your ID and insurance cards. ) Rell Noguera MD [Primary Care Provider] - 1-2 days Discharge Disposition: HOME SELF-CARE
[2020-04-15] MEDS ORDERED: atenoloL 50 MG TAB PO SCH (21:00)
[2020-04-15] MEDS: ACETAMINOPHEN TAB 325 MG TAB PO PRN (23:28)
[2020-04-16] MEDS: SODIUM CHLORIDE 0.9% 1,000 ML IV SCH (02:22)
--- NOTE | 2020-04-16 07:28 | P.PN ---
Subjective Progress Note Date: 04/16/20 Principal diagnosis: Syncope This is a pleasant 44-year-old female patient with history of hypertension as well as history of anemia who was admitted to the hospital with syncope. She underwent an echocardiogram which revealed normal left ventricle systolic function with evidence of [id number] mitral regurgitation. She underwent yesterday and orthostatic blood pressure check and that came in to be equivocal was a 10 mm drop in the systolic blood pressure from supine to standing position. The patient was seen this morning April [id number]. She is asymptomatic at this point. She stated that her dizziness has improved. She denies any symptoms of chest pain or chest discomfort. No shortness of breath. Currently she is on atenolol 50 mg by mouth daily which I'm going to cut down to 25 mg by mouth daily. We'll continue monitor the patient for the next few hours and if she is feeling better and asymptomatic she possibly can be discharged home and followed as an outpatient. Objective - Vital Signs Vital signs: Vital Signs Temp 98.3 F 04/16/20 05:00 Pulse 68 04/16/20 05:00 Resp 16 04/16/20 05:00 BP 113/57 04/16/20 05:00 Pulse Ox 99 04/16/20 05:00 Intake & Output 04/15/20 04/16/20 04/16/20 18:59 06:59 18:59 Intake Total 600 Balance 600 Intake: Oral 600 Other: Voiding Method Toilet Toilet # Voids 3 1 - Constitutional General appearance: Present: no acute distress - Respiratory Respiratory: bilateral: CTA - Cardiovascular Rhythm: regular Heart sounds: normal: S1, S2 - Labs CBC & Chem 7: 04/15/20 01:08 04/15/20 01:08 Assessment and Plan Assessment: Assessment #1 syncopal episode #2 hypertension #3 positive orthostatic blood pressure change #4 mild to moderate mitral regurgitation Plan #1 decrease the dose of atenolol #2 monitor the patient for the next few hours #3 possible discharge home later on today
[2020-04-16] MEDS: HEPARIN SODIUM,PORCINE 5,000 UNIT/ML 1 ML VIAL SQ SCH (08:29)
[2020-04-16 08:33] VITALS: BP 127/76; PULSE 69; RESP 20; TEMP 98.2
[2020-04-16] MEDS ORDERED: CALCIUM CARBONATE 500 MG CHEWABLE PO STA (11:07)
[2020-04-16] MEDS: ACETAMINOPHEN TAB 325 MG TAB PO PRN (11:12)
[2020-04-16] MEDS ORDERED: atenoloL 25 MG TAB PO SCH ×3 (21:00)
== END 2020-04-16 13:55 | disposition home or self-care (01) ==
LOC: EC 00:09 → 3NCARDOBS 02:32
PROVIDERS: ADMIT Internal Medicine; ATTEND Internal Medicine
DX: R55 Syncope and collapse (principal); R00.2 Palpitations; R07.89 Other chest pain; R06.02 Shortness of breath; R00.0 Tachycardia, unspecified; I10 Essential (primary) hypertension; D64.9 Anemia, unspecified; I34.0 Nonrheumatic mitral (valve) insufficiency; N92.6 Irregular menstruation, unspecified; E66.9 Obesity, unspecified; Z68.41 Body mass index [BMI] 40.0-44.9, adult; Z87.442 Personal history of urinary calculi; Z90.49 Acquired absence of other specified parts of digestive tract; Z79.899 Other long term (current) drug therapy; Z79.891 Long term (current) use of opiate analgesic; Z88.5 Allergy status to narcotic agent; Z88.1 Allergy status to other antibiotic agents
CPT/HCPCS: 96361 ×2; 96372; 96360; 99285; 36415; 93005; 93306; 93270; 85379; 80053; 84443; 83735; 84484; 85025; 85610; 85730; 81001; 71046; G0378 ×2; J1644

== ENCOUNTER 2020-05-26 16:00 | Emergency (ER) | payer BC, OTHER ==
[2020-05-26 16:10] VITALS: BP 161/97; PULSE 80; RESP 18; TEMP 98.3
[2020-05-26] MEDS ORDERED: NITROGLYCERIN OINT 1 INCH/GM PACKET TOPICAL STA (16:33)
[2020-05-26] MEDS ORDERED: ASPIRIN 81 MG PO STA (16:33)
--- NOTE | 2020-05-26 16:35 | ED ---
General Adult HPI - General Chief complaint: Chest Pain Stated complaint: Chest Pain Time Seen by Provider: 05/26/20 16:18 Source: patient, RN notes reviewed Mode of arrival: ambulatory Limitations: no limitations - History of Present Illness Initial comments: Patient is a pleasant 45-year-old female presenting to the emergency department chest discomfort. Patient was in the hospital over a month ago and had ultrasound and monitor. Patient has had symptoms occasionally since then however symptoms today are more severe. Discomfort is waxing and waning and rated 4/10. Discomfort feels like pressure. Patient does have some exertional dyspnea. No nausea. Patient feels a little bit sweaty at this time. No leg pain or leg swelling. - Related Data Home Medications Medication Instructions Recorded Confirmed Atenolol [Tenormin] 50 mg PO HS 05/26/20 05/26/20 Omeprazole 40 mg PO DAILY 05/26/20 05/26/20 Allergies Allergy/AdvReac Type Severity Reaction Status Date / Time cefuroxime [From Ceftin] AdvReac Nausea & Verified 05/26/20 17:08 Vomiting ciprofloxacin [From Cipro] AdvReac Nausea & Verified 05/26/20 17:08 Vomiting morphine AdvReac Rash/Hives Verified 05/26/20 17:08 Review of Systems ROS Statement: Those systems with pertinent positive or pertinent negative responses have been documented in the HPI. ROS Other: All systems not noted in ROS Statement are negative. Constitutional: Denies: fever Eyes: Denies: eye pain ENT: Denies: ear pain Respiratory: Reports: as per HPI Cardiovascular: Reports: as per HPI, chest pain Endocrine: Reports: fatigue Gastrointestinal: Denies: abdominal pain Genitourinary: Denies: dysuria Musculoskeletal: Denies: back pain Skin: Denies: rash Neurological: Denies: weakness Past Medical History Past Medical History: Hypertension Additional Past Medical History / Comment(s): kidney stones History of Any Multi-Drug Resistant Organisms: None Reported Past Surgical History: Appendectomy, Tonsillectomy, Tubal Ligation Additional Past Surgical History / Comment(s): Right fallopian tube removed. Past Psychological History: No Psychological Hx Reported Smoking Status: Never smoker Past Alcohol Use History: None Reported Past Drug Use History: None Reported General Exam Limitations: no limitations General appearance: alert, in no apparent distress Head exam: Present: normocephalic Eye exam: Present: normal appearance Neck exam: Present: normal inspection Respiratory exam: Present: normal lung sounds bilaterally. Absent: chest wall tenderness Cardiovascular Exam: Present: regular rate, normal rhythm Expanded Peripheral pulses: 2+: Radial (R), Radial (L), Dorsalis Pedis (R), Dorsalis Pedis (L) GI/Abdominal exam: Present: soft. Absent: tenderness Extremities exam: Present: normal inspection. Absent: pedal edema, calf tenderness Neurological exam: Present: alert Psychiatric exam: Present: normal affect, normal mood Skin exam: Present: normal color Course Vital Signs 05/26/20 16:07 Temperature 98.3 F Pulse Rate 80 Respiratory 18 Rate Blood Pressure 161/97 O2 Sat by Pulse 99 Oximetry EKG Findings - EKG Comments: EKG Findings:: Normal sinus rhythm 71. [place] 134. QRS 82. QT 380. QTC 412. Normal axis. Normal QRS. No acute ST change. Medical Decision Making - Medical Decision Making Patient has eloped Disposition Clinical Impression: Chest pain Disposition: Left Against Medical Advice Is patient prescribed a controlled substance at d/c from ED?: No Referrals: Rell Noguera MD [Primary Care Provider] - 1-2 days Time of Disposition: 17:44
== END 2020-05-26 17:44 | disposition left against medical advice (07) ==
LOC: EC 16:00
DX: R07.9 Chest pain, unspecified (principal); R06.00 Dyspnea, unspecified; I10 Essential (primary) hypertension; Z79.899 Other long term (current) drug therapy; Z88.1 Allergy status to other antibiotic agents; Z88.5 Allergy status to narcotic agent; Z90.49 Acquired absence of other specified parts of digestive tract; Z90.89 Acquired absence of other organs; Z98.51 Tubal ligation status; Z53.29 Procedure and treatment not carried out because of patient's decision for other reasons
CPT/HCPCS: 93005; 99284